=== PATIENT | female | born 2000 | race Caucasian/White ===

== ENCOUNTER 2021-03-09 23:36 | Outpatient (CLI) | payer OTHER ==
[~2021-03-09] VITALS: Ht 165.1 cm; Wt 70.0 kg
[2021-03-09 23:57] VITALS: BP 114/61
== END 2021-03-10 00:30 | disposition home or self-care (01) ==
LOC: LDOP 23:36
PROVIDERS: ATTEND Obstetrics & Gynecology
DX: O36.8130 Decreased fetal movements, third trimester, not applicable or unspecified (principal); Z3A.29 29 weeks gestation of pregnancy
CPT/HCPCS: 99211; G0463

== ENCOUNTER 2021-05-16 06:41 | Inpatient (IN) | payer OTHER ==
[~2021-05-16] VITALS: Ht 167.6 cm; Wt 75.9 kg
[2021-05-16] MEDS ORDERED: PREN1TAB60 PO (07:11)
[2021-05-16 07:13] VITALS: BP 119/77
[2021-05-16] MEDS: LACTATED RINGERS 1,000 ML IV SCH ×4 (08:15→20:00)
[2021-05-16] MEDS ORDERED: NEWBORN KIT ONE (08:21)
[2021-05-16] MEDS: FENTANYL PF 100 MCG/2ML IVPush PRN ×5 (08:21→13:20)
[2021-05-16] MEDS ORDERED: D5%-LACTATED RINGERS 1,000 ML IV SCH (08:30)
[2021-05-16] MEDS ORDERED: OXYTOCIN 30U/ 0.9% NaCL 500ML 500 ML IV ONE (08:30)
[2021-05-16] MEDS ORDERED: TERBUTALINE 1 MG/ML, 1ML SQ PRN (08:30)
[2021-05-16] MEDS ORDERED: TERBUTALINE 1 MG/ML, 1ML IVPush PRN (08:30)
[2021-05-16] MEDS ORDERED: ONDANSETRON 2MG/ML, 2ML IVPush PRN (08:30)
[2021-05-16 08:31] LABS: BASOPHILS % (AUTO) 1 % (0-1); EOSINOPHILS % (AUTO) 0 % (1-7); LYMPHOCYTES % (AUTO) 23 % (22-44); MEAN CORPUSCULAR HEMOGLOBIN 30.2 pg (27.0-34.8); MEAN CORPUSCULAR HGB CONC 33.2 g/dL (32.4-35.8); MEAN PLATELET VOLUME 9.1 fL (7.4-10.4); MONOCYTES % (AUTO) 6 % (2-9); NEUTROPHILS % (AUTO) 70 % (42-75); PLATELET COUNT 212 x10^3/uL (130-400); RED BLOOD COUNT 4.45 x10^6/uL (3.82-5.3); RED CELL DISTRIBUTION WIDTH 14.9 % (9.6-15.2)
[2021-05-16] MEDS ORDERED: FENTANYL/BUPIV./NS/PF 250 ML EPIDCONT ONE (14:25)
[2021-05-16] MEDS ORDERED: METOCLOPRAMIDE 5 MG/ML, 2ML ONE (15:36)
[2021-05-16] MEDS ORDERED: SODIUM CITRATE/CITRIC ACID 15 ML UDC ONE (15:37)
[2021-05-16] MEDS ORDERED: LACTATED RINGERS 1,000 ML INTUTE PRN (16:00)
[2021-05-16] MEDS ORDERED: OXYTOCIN 30U/ 0.9% NaCL 500ML 500 ML ONE (17:27)
[2021-05-16] MEDS ORDERED: MISOPROSTOL 200 MCG TABLET ONE (17:28)
[2021-05-16] MEDS ORDERED: LIDOCAINE 1%, 20ML ONE (17:28)
[2021-05-16] MEDS ORDERED: CEFAZOLIN 1,000 MG ONE ×2 (18:26)
[2021-05-16] MEDS ORDERED: OXYTOCIN 10 UNITS/ML, 1ML ONE (18:26)
[2021-05-16] MEDS ORDERED: EPHEDRINE 50 MG/ML, 1ML ONE (18:26)
[2021-05-16] MEDS ORDERED: METOCLOPRAMIDE 5 MG/ML, 2ML IV ONE (18:30)
[2021-05-16] MEDS ORDERED: SODIUM CITRATE/CITRIC ACID 30 ML UDC PO ONE (18:30)
[2021-05-16] MEDS ORDERED: AZITHROMYCIN 500 MG in SODIUM CHLORIDE 0.9% 250 ML IV ONE (18:30)
[2021-05-16] MEDS ORDERED: LACTATED RINGERS 1,000 ML IVBOLUS ONE (18:30)
[2021-05-16] MEDS ORDERED: ONDANSETRON 2MG/ML, 2ML IV PRN (20:00)
[2021-05-16] MEDS ORDERED: METHYLERGONOVINE 0.2 MG/ML IM PRN (20:00)
[2021-05-16] MEDS ORDERED: BISACODYL 10 MG SUPP PR PRN (20:00)
[2021-05-16] MEDS ORDERED: MORPHINE SULFATE 4 MG/ML, 1ML IVPush PRN (20:00)
[2021-05-16] MEDS ORDERED: GLYCERIN ADULT SUPP PR PRN (20:00)
[2021-05-16] MEDS ORDERED: CARBOPROST TROMETHAMINE 250 MCG/ML, 1ML IM PRN (20:00)
[2021-05-16] MEDS ORDERED: METOCLOPRAMIDE 5 MG/ML, 2ML IV PRN (20:00)
[2021-05-16] MEDS ORDERED: ACETAMINOPHEN 325 MG TABLET PO PRN (20:00)
[2021-05-16] MEDS ORDERED: MISOPROSTOL 200 MCG TABLET PO PRN (20:00)
[2021-05-16] MEDS: OXYTOCIN 30U/ 0.9% NaCL 500ML 500 ML IV SCH (20:00)
[2021-05-16] MEDS ORDERED: TRANEXAMIC ACID 1,000 MG in SODIUM CHLORIDE 0.9% 100 ML IVPB ONE (20:00)
[2021-05-16 21:00] VITALS: BP 144/88
[2021-05-16] MEDS: DOCUSATE 100 MG CAPSULE PO PRN (21:07)
[2021-05-16] MEDS: OXYcodone/APAP 5/325MG TABLET PO PRN ×2 (21:07→22:46)
[2021-05-16 21:30] VITALS: BP 125/84
[2021-05-16 22:14] LABS: ALANINE AMINOTRANSFERASE 11 U/L (12-78); ALBUMIN 1.9 g/dL (3.4-5.0); ANION GAP 8 mmol/L (5-15); CHLORIDE 106 mmol/L (98-107)
[2021-05-16 22:17] LABS: ALKALINE PHOSPHATASE 113 U/L (45-117); BILIRUBIN,TOTAL 0.3 mg/dL (0.2-1.0); CREATININE 0.56 mg/dL (0.55-1.02); TOTAL PROTEIN 5.4 g/dL (6.4-8.2)
[2021-05-17 00:20] VITALS: BP 124/68
[2021-05-17] MEDS: KETOROLAC 30 MG/1 ML IV SCH ×4 (01:24→21:11)
[2021-05-17 02:43] LABS: BASOPHILS % (AUTO) 1 % (0-1); EOSINOPHILS % (AUTO) 0 % (1-7); LYMPHOCYTES % (AUTO) 16 % (22-44); MEAN CORPUSCULAR HEMOGLOBIN 30.9 pg (27.0-34.8); MEAN PLATELET VOLUME 9.3 fL (7.4-10.4); MONOCYTES % (AUTO) 5 % (2-9); NEUTROPHILS % (AUTO) 79 % (42-75); PLATELET COUNT 155 x10^3/uL (130-400); RED BLOOD COUNT 3.31 x10^6/uL (3.82-5.3); RED CELL DISTRIBUTION WIDTH 14.5 % (9.6-15.2)
[2021-05-17] MEDS: OXYcodone IR 5MG TABLET PO PRN ×4 (02:52→19:19)
[2021-05-17] MEDS: LACTATED RINGERS 1,000 ML IV SCH ×5 (04:00→20:00)
[2021-05-17 04:15] VITALS: BP 125/72
[2021-05-17] MEDS: OXYTOCIN 30U/ 0.9% NaCL 500ML 500 ML IV SCH ×2 (06:00→16:00)
[2021-05-17] MEDS: DOCUSATE 100 MG CAPSULE PO PRN ×2 (07:51→19:19)
[2021-05-17 08:00] VITALS: BP 109/67
[2021-05-17] MEDS: PRENATAL VIT/IRON/FA 1 EACH TABLET PO SCH (09:00)
[2021-05-17 12:00] VITALS: BP 128/86
[2021-05-17 16:30] VITALS: BP 116/74
[2021-05-17 20:00] VITALS: BP 125/82
[2021-05-18] MEDS: LACTATED RINGERS 1,000 ML IV SCH ×2 (02:00→04:00)
[2021-05-18] MEDS: OXYTOCIN 30U/ 0.9% NaCL 500ML 500 ML IV SCH (02:00)
[2021-05-18] MEDS: KETOROLAC 30 MG/1 ML IV SCH ×4 (02:54→21:00)
[2021-05-18] MEDS: OXYcodone IR 5MG TABLET PO PRN ×2 (02:55→11:41)
[2021-05-18] MEDS: SIMETHICONE 80 MG CHEW TAB PO PRN ×2 (02:55→11:41)
[2021-05-18 08:02] VITALS: BP 119/82
[2021-05-18] MEDS: PRENATAL VIT/IRON/FA 1 EACH TABLET PO SCH (10:10)
[2021-05-18] MEDS: DOCUSATE 100 MG CAPSULE PO PRN (10:10)
[2021-05-19] MEDS: IBUPROFEN 600 MG TABLET PO PRN ×4 (00:30→21:17)
[2021-05-19 08:00] VITALS: BP 125/84
[2021-05-19] MEDS: DOCUSATE 100 MG CAPSULE PO PRN ×2 (08:19→21:18)
[2021-05-19] MEDS: PRENATAL VIT/IRON/FA 1 EACH TABLET PO SCH (08:19)
[2021-05-19] MEDS: SIMETHICONE 80 MG CHEW TAB PO PRN (08:19)
[2021-05-19] MEDS: OXYcodone IR 5MG TABLET PO PRN ×3 (08:27→21:17)
[2021-05-19] MEDS ORDERED: IBUP-1222 PO (08:45)
[2021-05-19] MEDS ORDERED: OXYC1TAB12 PO (08:45)
[2021-05-19] MEDS ORDERED: ONDANSETRON 4 MG TABLET PO PRN (17:00)
[2021-05-19 20:50] VITALS: BP 115/74
[2021-05-20] MEDS: OXYcodone IR 5MG TABLET PO PRN ×3 (06:46→14:40)
[2021-05-20] MEDS: IBUPROFEN 600 MG TABLET PO PRN ×2 (06:47→13:13)
[2021-05-20 07:30] VITALS: BP 114/78
[2021-05-20] MEDS: DOCUSATE 100 MG CAPSULE PO PRN (09:02)
[2021-05-20] MEDS: SIMETHICONE 80 MG CHEW TAB PO PRN (09:02)
[2021-05-20] MEDS: PRENATAL VIT/IRON/FA 1 EACH TABLET PO SCH (09:02)
== END 2021-05-20 15:03 | disposition home or self-care (01) | DRG 787 ==
LOC: LDOP 06:41 → LDIP 08:16 → 2NW 21:17
PROVIDERS: ADMIT Obstetrics & Gynecology; ATTEND Obstetrics & Gynecology
PROC: 10D00Z1 Extraction of Products of Conception, Low, Open Approach (ICD-10-PCS; principal; 2021-05-16)
DX: O76 Abnormality in fetal heart rate and rhythm complicating labor and delivery (principal); D62 Acute posthemorrhagic anemia; O32.9XX0 Maternal care for malpresentation of fetus, unspecified, not applicable or unspecified; Z20.822 Contact with and (suspected) exposure to COVID-19; Z37.0 Single live birth; Z3A.39 39 weeks gestation of pregnancy; O62.2 Other uterine inertia
CPT/HCPCS: 36415; J7121; 80053; 82803; 85025; 86592; 86850; 86900; 87635; G0378; J0456; J0690; J1885; J2405; J3010; J2590; J2765; J3105; J7050; J7120